=== PATIENT | female | born 1985 | race Caucasian/White ===

== ENCOUNTER 2016-11-23 11:55 | Emergency (ER) | payer OTHER ==
[2016-11-23 12:02] VITALS: BP 114/71
[2016-11-23] MEDS ORDERED: Albuterol/Ipratropium NEB.SOL* Albuterol 2.5 MG/Ipratropium 0.5 MG 3 ML INH ONE (12:03)
--- NOTE | 2016-11-23 12:47 | RAD ---
INDICATION: Short of breath COMPARISON: None TECHNIQUE: PA and lateral dual-energy views were obtained. FINDINGS: Bones/Soft Tissues: There are no acute bony findings. Cardiomediastinal: The cardiomediastinal silhouette is normal. Lungs: There are no infiltrates. Pleura: There are no pleural effusions. Other: None IMPRESSION: NORMAL CHEST
--- NOTE | 2016-11-23 12:58 | UC ---
Respiratory Complaint HPI - HPI Summary HPI Summary: 30 female presents with complaints of cold like symptoms (nasal congestion, sinus pressure and cough) that began approximately one week ago. Symptoms then began to worsen and new symptoms of a cough developed ~3 days ago. Symptoms really worsened over night and she woke up this morning with wheezing and difficulty breathing due to the chest congestion. She has not taken any medication as she is currently breast feeding. Denies history of asthma however has had URI/bronchitis in the past requiring duo-neb administration. Denies fever/chills, nausea, sore throat, hemoptysis, vomiting and chest pain. No risk factors for PE. - History of Current Complaint Chief Complaint: UCRespiratory Stated Complaint: BREATHING ISSUE/CONGESTION Time Seen by Provider: 11/23/16 12:03 Hx Obtained From: Patient Hx Last Menstrual Period: breast feeding ?: No Onset/Duration: Sudden Onset, Lasting Days Severity Initially: Mild Severity Currently: Moderate Pain Intensity: 0 Pain Scale Used: 0-10 Numeric Character: Sputum Description: - green/yellow, mucus-like Aggravating Factors: Deep Breaths, Recumbent Position Alleviating Factors: Bronchodilator - in past experiences, has not had any with recent episode, Upright Position Associated Signs And Symptoms: Positive: Wheezing, URI, Nasal Congestion, Sinus Discomfort. Negative: Dyspnea, Fever, Chills, Pleuritic Chest Pain, Hemoptysis , Edema, Hoarseness - Risk Factors Pulmonary Embolism Risk Factors: Negative Cardiac Risk Factors: Negative Pseudomonas Risk Factors: Negative Tuberculosis Risk Factors: Negative - Allergies/Home Medications Allergies/Adverse Reactions: Allergies Allergy/AdvReac Type Severity Reaction Status Date / Time No Known Allergies Allergy Verified 11/23/16 12:02 PMH/Surg Hx/FS Hx/Imm Hx Endocrine History Of: Denies: Diabetes Cardiovascular History Of: Denies: Hypertension Respiratory History Of: Denies: COPD, Asthma, Bronchitis, Pneumonia - Surgical History Surgical History: None - Family History Known Family History: Positive: None - Social History Alcohol Use: None Substance Use Type: None Smoking Status (MU): Never Smoked Tobacco - Immunization History Most Recent Influenza Vaccination: 06/05/16 Most Recent Tetanus Shot: 05/05/16 Most Recent Pneumonia Vaccination: na Review of Systems Constitutional: Negative Skin: Negative Eyes: Negative ENT: Nasal Discharge Respiratory: Shortness Of Breath, Cough Cardiovascular: Negative Gastrointestinal: Negative Genitourinary: Negative Motor: Negative Neurovascular: Negative Musculoskeletal: Negative Neurological: Headache Psychological: Negative All Other Systems Reviewed And Are Negative: Yes Physical Exam Triage Information Reviewed: Yes Appearance: No Pain Distress, Well-Nourished, Ill-Appearing - sounded congested upon speaking Vital Signs: Initial Vital Signs Temp 98.9 F 11/23/16 11:58 Pulse 81 11/23/16 11:58 Resp 20 11/23/16 11:58 BP 114/71 11/23/16 11:58 Pulse Ox 98 11/23/16 11:58 O2 sat normal range Vital Signs Reviewed: Yes Eyes: Positive: Conjunctiva Clear ENT: Positive: Normal ENT inspection, Hearing grossly normal, Pharynx normal, Nasal congestion, Nasal drainage, TMs normal, Tonsillar swelling. Negative: Pharyngeal erythema, Tonsillar exudate, Trismus, Muffled/hoarse voice Dental: Positive: Percussion Tenderness @ - minimal at maxillary sinuses b/l. Negative: Cervical Lymphadenopathy Neck: Positive: Supple, Nontender, No Lymphadenopathy Respiratory: Positive: Chest non-tender, Lungs clear, Normal breath sounds, No respiratory distress, No accessory muscle use, Wheezing - audible wheezing upon entry, improved after duo neb minimal wheezing noted in RLL., Expiration - wheezing. Negative: Respiratory distress, Decreased breath sounds, Accessory muscle use, Crackles, Rhonchi, Stridor Cardiovascular: Positive: RRR, No Murmur, Pulses Normal, Brisk Capillary Refill - <2 second Abdominal Exam: Normal Abdomen Description: Positive: Nontender, No Organomegaly, Soft Bowel Sounds: Positive: Present Musculoskeletal: Positive: Strength Intact, ROM Intact, No Edema Neurological Exam: Normal Neurological: Positive: Alert Psychological Exam: Normal Skin Exam: Normal UC Diagnostic Evaluation - Laboratory O2 Sat by Pulse Oximetry: 98 - Radiology Xray Interpretation: No Acute Changes - NORMAL CHEST Radiology Interpretation Completed By: Radiologist Re-Evaluation - Re-Evaluation First Eval Re-Evaluation Time: 13:00 Change: Improved - patient had significant improvement after duo-neb administration Respiratory Course/Dx - Course Course Of Treatment: duoneb administered. significant improvement. O2 sat normal. chest x-ray ordered to rule out pneumonia or lower respiratory tract infection. it was negative. encouraged to take tylenol and speak with OBGYN to discuss decongestant options safe with breast feeding. Given flonase and albuterol inhaler to take at home. patient does not have a nebulizer machine, was encouraged to try and get one through insurance seeing as how this has happened to her in the past. aware of worsening signs and symptoms to watch out for and to return or go to ED if difficulty breathing returns/worsens. follow up with pcp. - Differential Dx/Diagnosis Differential Diagnosis/HQI/PQRI: Asthma, Bronchitis, Lower Resp Infection, Other Provider Diagnoses: bronchitis/URI Discharge - Discharge Plan Condition: Stable Disposition: HOME Prescriptions: Albuterol HFA INHALER* [Ventolin HFA Inhaler*] 1 - 2 puff INH Q6H PRN #1 mdi PRN Reason: Wheezing Fluticasone NASAL SPRAY 50MCG* [Flonase NASAL SPRAY 50MCG*] 2 spray BOTH NARES DAILY #1 btl Patient Education Materials: Upper Respiratory Infection (ED), Acute Bronchitis (ED), Wheezing (ED) Referrals: No Primary Care Phys,NOPCP [Primary Care Provider] - [facility] [place]] Additional Instructions: Use prescribed inhaler to help with wheezing/ shortness of breath. Use prescribed nasal spray to help with congestion. Tylenol for pain and headache. Drink plenty of fluids and get lots of rest. Wash hands frequently. If you feel your symptoms are not improving and would like to try a decongestant , check with your OBGYN for recommendation of the safest medication. If your symptoms do not improve or worsen such as fever/chills, uncontrollable coughing, increasing sinus pressure and difficulty breathing please seek medical attention promptly as further treatment may be necessary at that time.
== END 2016-11-23 13:07 | disposition home or self-care (01) ==
LOC: UCEAST 11:55
DX: J06.9 Acute upper respiratory infection, unspecified (principal); J40 Bronchitis, not specified as acute or chronic
CPT/HCPCS: 71020; 99212; A9270-GY; G0463

== ENCOUNTER 2019-07-05 05:57 | Inpatient (IN) | payer OTHER ==
[2019-07-05] MEDS ORDERED: Buffered Lidocaine 1% SYRIN* 1 ML/SYRINGE INTRADERM ONE (06:52)
[2019-07-05] MEDS ORDERED: Lactated Ringers 1000 ML Bag* 1,000 ML IV ONE (06:52)
[2019-07-05] MEDS ORDERED: Lactated Ringers 1000 ML Bag* 1,000 ML IV SCH ×2 (07:00→14:00)
--- NOTE | 2019-07-05 07:03 | HP ---
General Information - Reason for Visit Prelabor rupture of membranes at term - General Information Maternal Age: 33 Grav: 3 Para: 2 SAB: 0 IEA: 0 Estimated Due Date: 07/21/19 Determined By: LMP Gestational Age in Weeks/Days: 37 5/7 Maternal Blood Type and Rh: AB Positive - Results this Serology/RPR Result: Non-Reactive Rubella Result: Immune HBsAg Result: Negative HIV Result: Negative GBS Culture Result: Negative Past Medical History Delivery History: Hx Uncomplicated Vaginal Delivery Pertinent Past Medical History: See Records Past Medical History Comment: Mild Asthma Pertinent Past Surgical History: None Pertinent Family History: See Records Family History Comment: Brother: Down's syndrome - Antepartal Records Antepartal Records: Reviewed, Complicated by: - GDM A1 Review of Systems Constitutional: Uncomfortable CV Complaint: No Respiratory: Shortness of Breath: No Gastrointestinal: No Nausea/Vomiting, Soft Stool Genitourinary: Leaking Fluid, No Dysuria Musculoskeletal: No Epigastric Pain, Contractions Neurological: No Headache, No Visual Changes Movement: Normal Exam Allergies/Adverse Reactions: Allergies No Known Allergies Allergy (Verified 07/05/19 06:14) B/P: 103/75, P: 99, R: 19, T: 98.1 - Measurements Height: 5 ft 4 in Weight: 144 lb Weight in lbs: [phone] Body Mass Index (BMI): 24.7 Pre- Weight: 124 lb Weight Gained This : 20 lbs and 0 ozs - Exam Breast: Breast Exam Deferred CVA: No CVA Tenderness Extremities: No Edema Heart: Normal Rhythm/Heart Sounds HEENT: No Significant Findings Lungs: Clear Bilaterally Reflexes: DTR 2+ Thyroid: No Thyromegaly - Abdominal Exam Abdomen Exam: Non-Tender, Fundal Height Consistent with Dates - Ultrasound/Biophysical Profile Ultrasound Status: Not Done Targeted Exam Findings See L&D Outpatient Visit Provider Note for Findings: N/A Estimated Weight: 6.5 lb by adam's Cervical Exam: 3cm Effacement: 80% Station: -2 Presenting Part: Vertex Membrane Status: Leaking Bleeding/Discharge: None EFM Findings - External Monitor Findings Baseline Heart Rate: 125 External Monitor Findings: Accelerations Present, No Pattern of Variable or Late Decelerations, Variability Moderate, Baseline Stable Contractions: Irregular, Moderate, 45-90 Seconds Contraction Frequency: 4-7 min Assessment/Plan - Assessment A: IUP at 37 5/7 weeks Category I FHR, no evidence of metabolic acidemia GBS negative GDM A1 Early labor vs prodromal labor P: Admit to inpatient Reviewed pitocin augmentation vs expectant management, prefers expectant management at this time Discussed position changes, walking in hallway, encouraged PO fluids and light breakfast Prefers to avoid epidural at this time Reassess PRN Anticipate SVB - Obstetrical Risk Factors Obstetrical Risk Factors: Gestational Diabetes - Plan Plan: Admit - Anticipate Vaginal Delivery - Date/Time of Admission Date of Admission: 07/05/19 Time of Admission: 06:30
[2019-07-05 08:09] LABS: Urine Benzodiazepine Screen None Detected (None Detect); Urine Opiates Screen None Detected (None Detect)
[2019-07-05 08:42] LABS: ABS Basophils 0.1 10^3/ul (0-0.2); ABS Eosinophils 0.1 10^3/ul (0-0.6); ABS Lymphocytes 2.3 10^3/ul (1.0-4.8); ABS Monocytes 0.8 10^3/ul (0-0.8); ABS Neutrophils 10.3 10^3/ul (1.5-7.7); Hematocrit 34 % (35-47); Hemoglobin 11.3 g/dL (12.0-16.0); Lymphocyte % 17.1 %; Mean Corpuscular HGB Conc 33 g/dL (31-36); Mean Corpuscular Hemoglobin 29 pg (27-31); Mean Corpuscular Volume 86 fL (80-97); Mean Platelet Volume 9.1 fL (7.4-10.4); Nucleated Red Blood Cells % 0.1; Platelet Count 288 10^3/uL (150-450); Red Blood Count 3.96 10^6 /uL (3.70-4.87); Red Cell Distribution Width 14 % (10-15); White Blood Count 13.7 10^3/uL (3.5-10.8)
[2019-07-05] MEDS ORDERED: Oxytocin in LR* 20 UNITS/1,000 ML BAG IVPB SCH ×2 (11:00→14:00)
--- NOTE | 2019-07-05 11:19 | PN ---
Progress Note - Progress Note Date of Service: 07/05/19 Note: S: Pt feeling frustrated, wants to "do something". Would like to start Pitocin. Feels active movement, somewhat uncomfortable with contractions, but able to talk through them, ready to augment labor. Considering time in the tub. O: VSS: BP 105/65, T 97.9 VE deferred, leaking clear fluid UCs q 2-5 mins FHTs 130, moderate variability, +accels, -decels A: IUP @37 5/7 in early labor SROM fluid clear GDM + No evidence of metabolic acidemia P: Initiate low dose Pitocin augmentation per protocol Continue to monitor maternal/ status Anticipate SVB
[2019-07-05] MEDS ORDERED: Glycerin ADULT SUPP PR PRN (13:30)
[2019-07-05] MEDS ORDERED: Acetaminophen TAB* 325 MG PO PRN (13:30)
[2019-07-05] MEDS: Ibuprofen TAB* 600 MG PO PRN ×2 (14:55→20:39)
[2019-07-05] MEDS: Witch Hazel PAD* JAR TOPICAL PRN (14:56)
[2019-07-05] MEDS: Dibucaine 1% 28.35 GM TUBE PR PRN (14:56)
[2019-07-05] MEDS ORDERED: Lidocaine 1% INJ* 10 MG/ML 30 ML SDV ONE (15:37)
--- NOTE | 2019-07-05 15:43 | PROCNOTE ---
[facility] OB: Delivery Note - Delivery A Date of : 07/05/19 Time of : 12:47 [place] Weight at : 3.09 kg Score 1 Minute: 8 Score 5 Minutes: 9 Gestational Age in Weeks and Days at Delivery: 37 Weeks and 5 Days Delivery Method: Spontaneous Vaginal Labor: Spontaneous Did Patient attempt ?: N/A, No Previous Amniotic Fluid: Clear Estimated Blood Loss: 400 Anesthesia/Analgesia: None Delivered By: Malcolm Dallas [facility] - Nursery Level of Nursery: Regular/Bedside - Perineum Perineal Injury: Perineal Laceration, 1st Degree Perineal Repair: SANGITA Hurtado - Events Delivery Events of Note: Precipitous Delivery, Post- Bleeding - Meds Given - Additional Delivery Notes Additional Delivery Notes: IUP @37 5/7 arrived early this morning in early labor s/p SROM at home @1700 , clear fluid. GBS negative. Declined augmentation or pain medication at that time. Pt walked in halls, actively lunging, FOB for support. Began to get frustrated and requested augmentation. Low dose Pitocin intiated with great effect. Pitocin up to 4mu. Pt in hands and knees on the bed, began pushing at 1240. Baby girl out at 1247 with compound presentation and nuchal X1. Baby to maternal abdomen. Cord doubly clamped and cut by FOB when pulsations ceased. Placenta followed intact, Patricio at 1258. Fundal massage with few clots out, IV Pitocin started at 350ml/hr. First degree perineal tear repaired with Lidocaine 1%. Pt tolerated well. Baby to breast, well latched and suckling with swallowing noted.
[2019-07-05] MEDS: Docusate CAP* 100 MG PO SCH ×2 (15:49→20:39)
[2019-07-06 06:59] LABS: ABS Basophils 0.1 10^3/ul (0-0.2); ABS Eosinophils 0.2 10^3/ul (0-0.6); ABS Lymphocytes 2.5 10^3/ul (1.0-4.8); ABS Monocytes 0.8 10^3/ul (0-0.8); ABS Neutrophils 8.4 10^3/ul (1.5-7.7); Eosinophil % 1.4 %; Hematocrit 31 % (35-47); Hemoglobin 10.3 g/dL (12.0-16.0); Lymphocyte % 21.1 %; Mean Corpuscular HGB Conc 33 g/dL (31-36); Mean Corpuscular Hemoglobin 28 pg (27-31); Mean Corpuscular Volume 86 fL (80-97); Mean Platelet Volume 8.6 fL (7.4-10.4); Platelet Count 267 10^3/uL (150-450); Red Blood Count 3.64 10^6 /uL (3.70-4.87); Red Cell Distribution Width 14 % (10-15)
[2019-07-06] MEDS ORDERED: Ferrous Gluconate TAB* 324 MG TAB PO SCH (09:00)
[2019-07-06] MEDS: Ibuprofen TAB* 600 MG PO PRN ×2 (09:42→18:00)
[2019-07-06] MEDS: Docusate CAP* 100 MG PO SCH ×3 (09:43→19:20)
[2019-07-06] MEDS: Witch Hazel PAD* JAR TOPICAL PRN (19:20)
[2019-07-06] MEDS: Dibucaine 1% 28.35 GM TUBE PR PRN (19:20)
[2019-07-07 08:26] VITALS: BP 108/65
[2019-07-07] MEDS: Ibuprofen TAB* 600 MG PO PRN (08:50)
[2019-07-07] MEDS: Docusate CAP* 100 MG PO SCH (08:50)
== END 2019-07-07 12:00 | disposition home or self-care (01) | DRG 806 ==
LOC: MCHOBOUT 05:57 → MCHOB 06:13
PROVIDERS: ADMIT Midwife; ATTEND Midwife
PROC: 10E0XZZ Delivery of Products of Conception, External Approach (ICD-10-PCS; principal; 2019-07-05)
PROC: 4A1HXCZ Monitoring of Products of Conception, Cardiac Rate, External Approach (ICD-10-PCS; 2019-07-05)
PROC: 0HQ9XZZ Repair Perineum Skin, External Approach (ICD-10-PCS; 2019-07-05)
DX: O42.02 Full-term premature rupture of membranes, onset of labor within 24 hours of rupture (principal); O72.1 Other immediate postpartum hemorrhage; O69.81X0 Labor and delivery complicated by cord around neck, without compression, not applicable or unspecified; O32.6XX0 Maternal care for compound presentation, not applicable or unspecified; O24.429 Gestational diabetes mellitus in childbirth, unspecified control; O62.3 Precipitate labor; O70.0 First degree perineal laceration during delivery; Z37.0 Single live birth; Z3A.37 37 weeks gestation of pregnancy
CPT/HCPCS: 36415; 80307; 85025; 86850; 86900; 86901; A9270-GY